=== PATIENT | female | born 1995 | race African-American/Black ===

== ENCOUNTER 2025-05-27 17:01 | Emergency (ER) | payer OTHER ==
[~2025-05-27] VITALS: Ht 160 cm; Wt 72.6 kg
[2025-05-27 19:15] VITALS: PULSE 77; RESP 16; TEMP 97.5; O2SAT 100
== END 2025-05-27 19:16 | disposition home or self-care (01) ==
LOC: ER 18:39
DX: M25.562 Pain in left knee (principal); V43.62XA Car passenger injured in collision with other type car in traffic accident, initial encounter; Y92.488 Other paved roadways as the place of occurrence of the external cause
CPT/HCPCS: 99283